=== PATIENT | male | born 1980 | race Two or more races ===

== ENCOUNTER 2018-04-29 17:07 | Emergency (ER) | payer BC, OTHER ==
[~2018-04-29] VITALS: Ht 193 cm; Wt 99.8 kg
[2018-04-29 17:15] VITALS: BP 140/76
[2018-04-29] MEDS ORDERED: Norco 5mg/325mg tab ORAL ONE (17:15)
[2018-04-29] MEDS ORDERED: NKM (17:23)
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
[2018-04-29] MEDS ORDERED: BACITRACIN-P28.35 GM TP (17:48)
[2018-04-29] MEDS ORDERED: IBUPROFEN600 MG ORAL (17:48)
[2018-04-29 17:57] VITALS: BP 140/76
--- NOTE | 2018-04-29 18:12 | Diagnostic Imaging Report ---
EXAM: XR Right Wrist Complete, 3 or More Views CLINICAL HISTORY: PAIN TECHNIQUE: Frontal, lateral and oblique views of the right wrist. COMPARISON: No relevant prior studies available. FINDINGS: Bones/joints: Tiny calcified focus adjacent to the radial aspect mid- scaphoid of uncertain chronicity. This likely represents remote trauma or tiny avulsion. No acute fracture. No dislocation. Soft tissues: Unremarkable. No radiopaque foreign body. Other findings: No acute abnormality. IMPRESSION: 1. No acute abnormality. 2. Tiny calcified focus adjacent to the radial aspect mid-scaphoid of uncertain chronicity. This likely represents remote trauma or tiny avulsion.
== END 2018-04-29 18:00 | disposition home or self-care (01) ==
LOC: EDBD 17:07 → EMR 17:38
DX: S60.211A Contusion of right wrist, initial encounter (principal); S60.811A Abrasion of right wrist, initial encounter; V89.2XXA Person injured in unspecified motor-vehicle accident, traffic, initial encounter; Y92.9 Unspecified place or not applicable
CPT/HCPCS: 99284